=== PATIENT | male | born 1965 | race African-American/Black ===

== ENCOUNTER 2017-12-24 09:18 | Observation (INO) ==
[2017-12-24] MEDS ORDERED: POTASSIUM CHLORIDE 20 MEQ TABLET PO PRN ×2 (11:54)
[2017-12-24] MEDS ORDERED: ACETAMINOPHEN 325 MG TABLET PO PRN (11:54)
[2017-12-24] MEDS ORDERED: ALUM/MAG/SIMETH/LIDO VISC 1:1 30 ML BOTTLE PO PRN (11:54)
[2017-12-24] MEDS ORDERED: MAGNESIUM SULF RIDER 2 GM in PREMIX 1 EACH IV PRN (11:54)
[2017-12-24] MEDS ORDERED: MAGNESIUM SULF RIDER 4 GM in PREMIX 1 EACH IV PRN (11:54)
[2017-12-24] MEDS ORDERED: BISACODYL 5 MG TABLET PO PRN (11:54)
[2017-12-24] MEDS ORDERED: MAGNESIUM HYDROXIDE SUSP 30 ML UDCUP PO PRN (11:54)
[2017-12-24] MEDS ORDERED: ONDANSETRON 4 MG/2 ML VIAL IV PRN (11:54)
[2017-12-24] MEDS ORDERED: NITROGLYCERIN SL 0.4 MG TABLET SL PRN (11:54)
[2017-12-24] MEDS ORDERED: ZALEPLON 5 MG CAPSULE PO PRN (11:54)
[2017-12-24] MEDS: HEPARIN 5,000 UNIT/1 ML VIAL SUBCUT SCH ×2 (12:46→21:36)
[2017-12-24] MEDS: NICOTINE 21 MG/24 HR PATCH TRANSDERM SCH (12:47)
[2017-12-24 13:04] LABS: Risk Ratio 4.24; Thyroid Stimulating Hormone 1.45 uIU/ml (0.358-3.74); VLDL CHOLESTEROL 19.8 MG/DL
[2017-12-24] MEDS: CARVEDILOL 6.25 MG TABLET PO SCH (16:09)
[2017-12-24] MEDS ORDERED: ATORVASTATIN 10 MG TABLET PO SCH (21:00)
[2017-12-24] MEDS ORDERED: METOPROLOL TARTRATE 50 MG TABLET PO SCH (21:00)
[2017-12-24] MEDS: METOPROLOL TARTRATE 50 MG TABLET PO SCH (21:32)
[2017-12-24] MEDS: FAMOTIDINE 20 MG TABLET PO SCH (21:32)
[2017-12-24] MEDS: buPROPion 75 MG TABLET PO SCH (23:28)
[2017-12-24] MEDS: GABAPENTIN 100 MG CAPSULE PO SCH (23:28)
[2017-12-24] MEDS: ACETAMINOPHEN 325 MG TABLET PO SCH (23:29)
[2017-12-24] MEDS: PANTOPRAZOLE 40 MG TABLET PO SCH (23:29)
[2017-12-25] MEDS: HEPARIN 5,000 UNIT/1 ML VIAL SUBCUT SCH (04:08)
[2017-12-25 04:42] LABS: Basophils # 0.1 10*3/uL (0.0-0.2); Basophils % 1.1 % (0.0-0.8); Eosinophils # 0.5 10*3/uL (0.0-0.87); Eosinophils % 7.5 % (0.00-10.9); Hematocrit 39.8 VOL% (42.0-52.0); Hemoglobin 12.7 GM/DL (14.0-18.0); Immature Granulocytes % 0.5 %; Immature Granulocytes Absolute 0.03 #; Lymphocytes # 2.2 10*3/uL (1.4-4.0); Lymphocytes % 35.7 % (21.2-54.2); Mean Corpuscular HGB Conc 31.9 GM/DL (32-36); Mean Corpuscular Hemoglobin 28 PG (27-34); Mean Corpuscular Volume 86.1 FL (87-102); Mean Platelet Volume 10.5 FL (9.6-12.0); Monocytes # 0.4 10*3/uL (0.11-0.8); Monocytes % 6.2 % (1.7-12.7); Neutrophils # 3.1 10*3/uL (1.4-7.4); Platelet Count 227 T/CUMM (130-400); Red Blood Count 4.62 MC/CUMM (3.8-5.5); Red Cell Distribution Width 13.9 % (9.3-17.3); White Blood Count 6.3 T/CUMM (4-12)
[2017-12-25 05:13] LABS: Albumin 3.2 G/DL (3.4-5.0); Bilirubin,Total 0.8 MG/DL (0.2-1.0); Calcium 8.3 MG/DL (8.5-10.1); Potassium 3.8 MMOL/L (3.5-5.1); Total Protein 6.4 G/DL (6.4-8.3); Troponin I 0.016 NG/ML (0.00-0.045)
[2017-12-25 07:50] VITALS: BP 140/91
[2017-12-25] MEDS ORDERED: ASPIRIN EC 81 MG TABLET PO SCH (09:00)
[2017-12-25] MEDS ORDERED: LISINOPRIL 5 MG TABLET PO SCH (09:00)
[2017-12-25] MEDS: ACETAMINOPHEN 325 MG TABLET PO SCH (09:17)
[2017-12-25] MEDS: METOPROLOL TARTRATE 50 MG TABLET PO SCH (09:17)
[2017-12-25] MEDS: GABAPENTIN 100 MG CAPSULE PO SCH (09:17)
[2017-12-25] MEDS: PANTOPRAZOLE 40 MG TABLET PO SCH (09:18)
[2017-12-25] MEDS: FAMOTIDINE 20 MG TABLET PO SCH (09:18)
[2017-12-25] MEDS: CARVEDILOL 6.25 MG TABLET PO SCH (09:19)
[2017-12-25] MEDS: buPROPion 75 MG TABLET PO SCH (09:19)
[2017-12-25] MEDS: NICOTINE 21 MG/24 HR PATCH TRANSDERM SCH (09:27)
== END 2017-12-25 11:57 | disposition home or self-care (01) ==
LOC: N.TELES → SUATTDRO 11:23
PROVIDERS: ADMIT Internal Medicine; ATTEND Internal Medicine